=== PATIENT | female | born 1945 | race Caucasian/White ===

== ENCOUNTER → 2017-05-12 | Day surgery (SDC) | payer OTHER ==
[~2017-05-12] VITALS: Ht 162.5 cm; Wt 93.0 kg
[~2017-05-12] MED LIST: ALDACTONE50 M1 PO; ASPIRIN81 M1 PO; AZO MENOPAUSE1 X PO; CALCIUM WITH VI1 TA1 PO; LIPITOR10 MG PO; MILK THISTLE150 MG PO; MULTIVITAMIN1 CTB PO
--- NOTE | ~2017-05-12 | O ---
[place], [place] OPERATIVE NOTE NAME: CONSTANCE LOPEZ UNIT #: [id number] ROOM: DOCTOR: DILMA PAZ MD BIRTHDATE: [birth year] DOS: The patient has presented with chief complaint of nonspecific abdominal pain, history of colonic screening, concerned. PAST SURGICAL HISTORY: D and C. FAMILY HISTORY: Noncontributory. ALLERGIES: To no known medications. SOCIAL HISTORY: Hypercholesterolemia. FAMILY HISTORY: Hypertension. PROCEDURE: Today's procedure as a part of investigation is colonoscopy plus polypectomy. PREMEDICATION: Versed and Diprivan. SCOPE: Olympus folding colonoscope 10L video. REPORT: After putting the patient in the left lateral position and after application of lubricant to the scope, the scope was introduced; thereafter, under direct visualization, advanced through the length of colon without difficulty. Scattered diverticulosis was identified. The base of the cecum explored, appendiceal orifice identified, and ileocecal valve was defined. Scope was gradually withdrawn back to the rectal pouch. Two sessile polypoid lesion with piecemeal polypectomy removed. The patient extubated, tolerated the procedure well. IMPRESSION: Diverticulosis; sessile colonic polyps in rectal pouch, status post piecemeal polypectomy. PLAN AND DISCUSSION: High-fiber fruit diet, activity ad lito. FOLLOWUP: As outpatient. Thank you very much indeed. [place], [place] OPERATIVE NOTE NAME: CONSTANCE LOPEZ UNIT #: [id number] ROOM: DOCTOR: DILMA PAZ MD BIRTHDATE: [birth year] DILMA PAZ MD CM:OPRECORD:OPERATIVE NOTE 2 1 DILMA PZA MD 05/12/17851 interface
[2017-05-12 06:40] VITALS: BP 146/75
[2017-05-12 08:11] VITALS: BP 104/57
[2017-05-12 08:25] VITALS: BP 121/64
[2017-05-12 08:42] VITALS: BP 138/84
== END | disposition home or self-care (01) ==
LOC: SDC 05-06 12:30
DX: K63.5 Polyp of colon (principal); K57.30 Diverticulosis of large intestine without perforation or abscess without bleeding; E78.00 Pure hypercholesterolemia, unspecified; F17.210 Nicotine dependence, cigarettes, uncomplicated; I10 Essential (primary) hypertension; Z98.890 Other specified postprocedural states; Z86.010 Personal history of colon polyps

== ENCOUNTER → 2018-05-09 | Outpatient (CLI) | payer OTHER ==
[2018-05-09 13:12] LABS: BASO # 0.1 10*3/uL (0.0-0.1); BASO % 0.8 % (0.0-1.0); EOS # 0.2 10*3/uL (0.0-0.4); EOS % 2.5 % (1.0-4.0); HEMATOCRIT 42.1 % (37.0-47.0); HEMOGLOBIN 13.5 g/dl (12.0-16.0); LYMPH # 2.3 10*3/uL (1.3-4.4); MEAN CELL VOLUME 105.3 fl (81.0-99.0); MEAN CORPUSCULAR HGB 33.8 pg (27.0-31.0); MEAN CORPUSCULAR HGB CONC 32.1 g/dl (33.0-37.0); MEAN PLATELET VOLUME 10.4 fl (9.6-12.3); MONO # 1.2 10*3/uL (0.1-1.0); MONO % 14.4 % (3.0-9.0); NEUT # 4.3 10*3/uL (2.3-7.9); PLATELET COUNT AUTOMATED 278 10*3/uL (130-400); RED CELL DISTRI WIDTH 12.8 % (0-14.5)
[2018-05-09 13:42] LABS: ALBUMIN 3.9 gm/dl (3.1-4.5); ALKALINE PHOSPHATASE 98 U/L (45-117); BILIRUBIN, DIRECT 0.1 mg/dL (0.0-0.2); BUN 20 mg/dl (7-24); CHLORIDE 99 mmol/L (98-107); CHOLESTEROL 116 mg/dL (<200); CREATININE 0.83 mg/dL (0.55-1.02); HDL CHOLESTEROL 55 mg/dl (40-60); LDL CHOLESTEROL 32 mg/dL (9-159); POTASSIUM 4.2 mmol/L (3.5-5.1); SGOT/AST 24 IU/L (3-35); SGPT/ALT 29 U/L (12-78); SODIUM 137 mmol/L (136-145); TOTAL PROTEIN 8.1 gm/dL (6.4-8.2); TRIGLYCERIDES 144 mg/dl (<150); VLDL CHOLESTEROL 29 mg/dL (6-40)
[2018-05-09 14:03] LABS: VITAMIN D, 25-HYDROXY 30.7 ng/mL (30-100)
== END | disposition home or self-care (01) ==
LOC: LAB 11:45
PROVIDERS: Internal Medicine
DX: E78.2 Mixed hyperlipidemia (principal); M85.80 Other specified disorders of bone density and structure, unspecified site; Z79.1 Long term (current) use of non-steroidal anti-inflammatories (NSAID)

== ENCOUNTER → 2018-10-12 | Day surgery (SDC) | payer OTHER ==
[~2018-10-12] VITALS: Ht 162.5 cm; Wt 97.5 kg
[~2018-10-12] MED LIST changes: +ATORVASTATIN CA40 M1 PO
--- NOTE | ~2018-10-12 | O ---
[place], [place] OPERATIVE NOTE NAME: CONSTANCE LOPEZ UNIT #: [id number] ROOM: DOCTOR: JOSE D BLAKELY MD BIRTHDATE: [birth year] DOS: 10/12/2018 PREOPERATIVE DIAGNOSIS: Cataract, left eye. POSTOPERATIVE DIAGNOSIS: Cataract, left eye. OPERATION: Extracapsular cataract extraction by phacoemulsification with posterior chamber intraocular lens implantation, left eye. ANESTHESIA: Monitored standby. OPERATIVE FINDINGS AND PROCEDURE: 2% Xylocaine topical anesthetic gel was applied to the eye in the preop area. The patient was taken to the operating room and prepped and draped in the standard fashion for sterile intraocular surgery. A time out procedure was performed verifying correct patient, correct site and corrects lens with Landon Blakely M.D. The operating microscope was swung into position and the lid speculum was inserted. Using a Urszula paracentesis blade, a paracentesis was made through clear cornea. Viscoelastic was used to fill the anterior chamber. Using a metal keratome a 2.4 mm self-sealing clear corneal cataract incision was made temporally at the limbus. Using a pre-bent 25 gauge cystotome needle, a standard continuous curvilinear capsulorrhexis was performed. The anterior capsule was removed with forceps. The lens nucleus was hydrodissected and phacoemulsified in the posterior chamber. Cortical material was removed with the irrigation aspiration hand piece and the posterior capsule was then polished with a curet under irrigation. The posterior chamber and capsular bag were filled with viscoelastic. A posterior chamber intraocular lens manufactured by: [employer], Model AU00T0, 19.0 diopters in strength were then inserted into the posterior chamber and within the capsular bag using the lens cartridge and injector system. Viscoelastic was removed using the irrigation aspiration handpiece. The anterior chamber was filled with balanced salt solution through the paracentesis. Both the paracentesis site and cataract incisions were hydrated with BSS and verified to be water-tight and self-sealing. Cefuroxime 1 mg/0.1 mL was injected into the anterior chamber through the paracentesis site. The incision checked to be water-tight using a Weck-Kimberly sponge. The integrity of the cataract wound and ocular tension were checked. Lid speculum and drapes were removed. The patient was transferred from the operating room to the recovery room in satisfactory condition. [place], [place] OPERATIVE NOTE NAME: CONSTANCE LOPEZ UNIT #: [id number] ROOM: DOCTOR: JOSE D BLAKELY MD BIRTHDATE: [birth year] JOSE D BLAKELY MD CM:OPRECORD:OPERATIVE NOTE [id number] JOSE D BLAKELY MD 10/12/18 1343 interface
[2018-10-12 09:10] VITALS: BP 123/56
[2018-10-12 10:44] VITALS: BP 117/68
[2018-10-12 11:00] VITALS: BP 129/68
[2018-10-12 11:11] VITALS: BP 120/58
== END | disposition home or self-care (01) ==
LOC: SDC 08-29 13:15
DX: H25.812 Combined forms of age-related cataract, left eye (principal); I10 Essential (primary) hypertension; E78.00 Pure hypercholesterolemia, unspecified; E78.5 Hyperlipidemia, unspecified; F17.210 Nicotine dependence, cigarettes, uncomplicated; E66.09 Other obesity due to excess calories; Z98.890 Other specified postprocedural states; Z86.010 Personal history of colon polyps; Z79.899 Other long term (current) drug therapy

== ENCOUNTER → 2018-11-02 | Day surgery (SDC) | payer OTHER ==
[~2018-11-02] VITALS: Ht 162.5 cm; Wt 95.3 kg
--- NOTE | ~2018-11-02 | O ---
[place], [place] OPERATIVE NOTE NAME: CONSTANCE LOPEZ UNIT #: [id number] ROOM: DOCTOR: JOSE D BLAKELY MD BIRTHDATE: [birth year] DOS: 11/02/2018 PREOPERATIVE DIAGNOSIS: Cataract, right eye. POSTOPERATIVE DIAGNOSIS: Cataract, right eye. OPERATION: Extracapsular cataract extraction by phacoemulsification with posterior chamber intraocular lens implantation, right eye. ANESTHESIA: Monitored standby. OPERATIVE FINDINGS AND PROCEDURE: 2% Xylocaine topical anesthetic gel was applied to the eye in the preop area. The patient was taken to the operating room and prepped and draped in the standard fashion for sterile intraocular surgery. A time out procedure was performed verifying correct patient, correct site and corrects lens with Landon Blakely M.D. The operating microscope was swung into position and the lid speculum was inserted. Using a Urszula paracentesis blade, a paracentesis was made through clear cornea. Viscoelastic was used to fill the anterior chamber. Using a metal keratome a 2.4 mm self-sealing clear corneal cataract incision was made temporally at the limbus. Using a pre-bent 25 gauge cystotome needle, a standard continuous curvilinear capsulorrhexis was performed. The anterior capsule was removed with forceps. The lens nucleus was hydrodissected and phacoemulsified in the posterior chamber. Cortical material was removed with the irrigation aspiration hand piece and the posterior capsule was then polished with a curet under irrigation. The posterior chamber and capsular bag were filled with viscoelastic. A posterior chamber intraocular lens manufactured by: [employer], model #[id number], 19.0 diopters in strength were then inserted into the posterior chamber and within the capsular bag using the lens cartridge and injector system. Viscoelastic was removed using the irrigation aspiration handpiece. The anterior chamber was filled with balanced salt solution through the paracentesis. Both the paracentesis site and cataract incisions were hydrated with BSS and verified to be water-tight and self-sealing. Cefuroxime 1 mg/0.1 mL was injected into the anterior chamber through the paracentesis site. The incision checked to be water-tight using a Weck-Kimberly sponge. The integrity of the cataract wound and ocular tension were checked. Lid speculum and drapes were removed. The patient was transferred from the operating room to the recovery room in satisfactory condition. [place], [place] OPERATIVE NOTE NAME: CONSTANCE LOPEZ UNIT #: [id number] ROOM: DOCTOR: ZORA PEREZ,JOSE D BIRTHDATE: [birth year] JOSE D BLAKELY MD CM:OPRECORD:OPERATIVE NOTE [id number] 1414 JOSE D BLAKELY MD 11/02/18 1413 interface
[2018-11-02 10:01] VITALS: BP 123/81
[2018-11-02 12:11] VITALS: BP 128/62
[2018-11-02 12:26] VITALS: BP 131/62
== END | disposition home or self-care (01) ==
LOC: SDC 10-27 12:30
DX: H25.811 Combined forms of age-related cataract, right eye (principal); F17.210 Nicotine dependence, cigarettes, uncomplicated; E78.5 Hyperlipidemia, unspecified; I10 Essential (primary) hypertension; E66.01 Morbid (severe) obesity due to excess calories; Z98.41 Cataract extraction status, right eye; Z96.1 Presence of intraocular lens; Z72.89 Other problems related to lifestyle; Z98.890 Other specified postprocedural states; Z79.899 Other long term (current) drug therapy; Z79.82 Long term (current) use of aspirin

== ENCOUNTER → 2018-12-14 | Outpatient (CLI) | payer OTHER ==
[2018-12-14 11:56] LABS: BASO # 0.1 10*3/uL (0.0-0.1); BASO % 0.6 % (0.0-1.0); EOS # 0.4 10*3/uL (0.0-0.4); EOS % 4.1 % (1.0-4.0); HEMATOCRIT 43.2 % (37.0-47.0); HEMOGLOBIN 13.6 g/dl (12.0-16.0); LYMPH # 2.6 10*3/uL (1.3-4.4); LYMPH % 26.4 % (27.0-41.0); MEAN CELL VOLUME 104.9 fl (81.0-99.0); MEAN CORPUSCULAR HGB CONC 31.5 g/dl (33.0-37.0); MEAN PLATELET VOLUME 9.9 fl (9.6-12.3); MONO # 1.2 10*3/uL (0.1-1.0); MONO % 11.9 % (3.0-9.0); NEUT # 5.5 10*3/uL (2.3-7.9); NEUT % 56.5 % (47.0-73.0); PLATELET COUNT AUTOMATED 304 10*3/uL (130-400); RED BLOOD COUNT 4.12 10*6/uL (4.10-5.10); RED CELL DISTRI WIDTH 12.4 % (0-14.5); WHITE BLOOD COUNT 9.8 10*3/uL (4.8-10.8)
[2018-12-14 12:19] LABS: ALBUMIN 3.7 gm/dl (3.1-4.5); ALKALINE PHOSPHATASE 99 U/L (45-117); BILIRUBIN, DIRECT 0.2 mg/dL (0.0-0.2); BUN 19 mg/dl (7-24); CHLORIDE 97 mmol/L (98-107); CHOLESTEROL 135 mg/dL (<200); CREATININE 0.84 mg/dL (0.55-1.02); HDL CHOLESTEROL 60 mg/dl (40-60); LDL CHOLESTEROL 46 mg/dL (9-159); PHOSPHOROUS 4.1 mg/dL (2.5-4.9); POTASSIUM 4.2 mmol/L (3.5-5.1); SGOT/AST 19 IU/L (3-35); SGPT/ALT 30 U/L (12-78); SODIUM 133 mmol/L (136-145); TOTAL PROTEIN 8.1 gm/dL (6.4-8.2); TRIGLYCERIDES 143 mg/dl (<150); VLDL CHOLESTEROL 29 mg/dL (6-40)
== END | disposition home or self-care (01) ==
LOC: LAB 11:25
PROVIDERS: Internal Medicine
DX: E78.2 Mixed hyperlipidemia (principal)

== ENCOUNTER → 2019-09-29 | Day surgery (SDC) | payer OTHER ==
[~2019-09-29] VITALS: Ht 162.5 cm; Wt 95.3 kg
--- NOTE | ~2019-09-29 | O ---
[place], [place] OPERATIVE NOTE NAME: CONSTANCE LOPEZ UNIT #: [id number] ROOM: DOCTOR: DILMA PAZ MD BIRTHDATE: [birth year] DOS: 09/29/2019 GASTROENDOSCOPIC REPORT HISTORY OF PRESENT ILLNESS: A 74-year-old patient who presented with history of colonic polyp, undergoing investigation. PAST MEDICAL HISTORY: Hypertension and hyperlipidemia. FAMILY HISTORY: Noncontributory. SOCIAL HISTORY: Has stopped smoking and social alcohol. PAST SURGICAL HISTORY: Cataract and D and C. ALLERGIES: No known medication. PROCEDURE: Today's procedure part of investigation is colonoscopy plus polypectomy plus photographic series. PREMEDICATION: Propofol. SCOPE: Olympus forward-viewing colonoscope 10L video. REPORT: After putting the patient in left lateral position and application of lubricant to the scope, the scope was introduced. Thereafter, under direct visualization, advanced through the length of colon without difficulty. Diverticulosis was appreciated. Sessile polypoid lesion x 3 in the sigmoid colon with piecemeal polypectomy was removed. Base of the cecum explored, appendiceal orifice identified, ileocecal valve defined. Air was suctioned out. The patient was extubated, tolerated the procedure well. IMPRESSION: 1. Sigmoid polyps x 3 sessile in character, status post piecemeal polypectomy. 2. Diverticulosis. PLAN: High fiber fruit diet. ACTIVITY: Ad lito. FOLLOWUP: As outpatient. Thank you very much indeed for your kind referral. [place], [place] OPERATIVE NOTE NAME: CONSTANCE LOPEZ UNIT #: [id number] ROOM: DOCTOR: DILMA PAZ MD BIRTHDATE: [birth year] DILMA PAZ MD CM:OPRECORD:OPERATIVE NOTE [id number] 1330 DILMA PAZ MD 09/29/19 1329 interface
[2019-09-29 10:47] VITALS: BP 141/76
[2019-09-29 11:42] VITALS: BP 111/60
[2019-09-29 11:57] VITALS: BP 101/59
[2019-09-29 12:12] VITALS: BP 127/66
== END | disposition home or self-care (01) ==
LOC: SDC 09-26 08:45
DX: Z12.11 Encounter for screening for malignant neoplasm of colon (principal); K63.5 Polyp of colon; E78.5 Hyperlipidemia, unspecified; K57.30 Diverticulosis of large intestine without perforation or abscess without bleeding; I10 Essential (primary) hypertension; Z86.010 Personal history of colon polyps; Z79.899 Other long term (current) drug therapy; Z98.890 Other specified postprocedural states

== ENCOUNTER 2020-05-22 05:58 | Emergency (ER) | payer OTHER ==
[~2020-05-22] VITALS: Ht 160 cm; Wt 102.1 kg
[2020-05-22 06:43] LABS: BASO % 0.1 % (0.0-1.0); LYMPH # 1.4 10*3/uL (1.3-4.4); LYMPH % 10.6 % (27.0-41.0); MEAN CELL VOLUME 102.4 fl (81.0-99.0); MEAN CORPUSCULAR HGB 32.6 pg (27.0-31.0); MEAN CORPUSCULAR HGB CONC 31.8 g/dl (33.0-37.0); MEAN PLATELET VOLUME 10.1 fl (9.6-12.3); MONO # 0.8 10*3/uL (0.1-1.0); MONO % 5.6 % (3.0-9.0); NEUT # 11.4 10*3/uL (2.3-7.9); NEUT % 83.3 % (47.0-73.0); PLATELET COUNT AUTOMATED 286 10*3/uL (130-400); RED BLOOD COUNT 3.71 10*6/uL (4.10-5.10); WHITE BLOOD COUNT 13.6 10*3/uL (4.8-10.8)
[2020-05-22 07:06] LABS: ALBUMIN 3.8 gm/dl (3.1-4.5); ALKALINE PHOSPHATASE 98 U/L (45-117); BUN 16 mg/dl (7-24); CHLORIDE 105 mmol/L (98-107); CREATININE 0.93 mg/dL (0.55-1.02); LIPASE 375 U/L (73-393); POTASSIUM 4.1 mmol/L (3.5-5.1); SGOT/AST 26 IU/L (3-35); SGPT/ALT 37 U/L (12-78); SODIUM 138 mmol/L (136-145); TOTAL PROTEIN 8.3 gm/dL (6.4-8.2)
[2020-05-22 07:10] LABS: BILIRUBIN NEGATIVE (NEGATIVE); BLOOD NEGATIVE (NEGATIVE); CLARITY CLEAR (CLEAR); COLOR YELLOW (YELLOW); GLUCOSE NEGATIVE (NEGATIVE); KETONE NEGATIVE (NEGATIVE); LEUKO ESTERASE NEGATIVE (NEGATIVE); NITRITE NEGATIVE (NEGATIVE); UROBILINOGEN 0.2 E.U./dl (0.2-1.0)
[2020-05-22 07:11] LABS: RBC 0-2 rbc/hpf (0-2)
== END 2020-05-22 08:40 | disposition home or self-care (01) ==
LOC: ED 05:58
PROVIDERS: Emergency Medicine
DX: R10.31 Right lower quadrant pain (principal); I10 Essential (primary) hypertension; E78.00 Pure hypercholesterolemia, unspecified; Z79.899 Other long term (current) drug therapy; Z79.82 Long term (current) use of aspirin

== ENCOUNTER → 2020-07-17 | Outpatient (CLI) | payer OTHER | END | disposition home or self-care (01) | LOC: US 12:23 | DX: N85.9 Noninflammatory disorder of uterus, unspecified (principal) ==

== ENCOUNTER → 2020-08-21 | Outpatient (CLI) | payer OTHER ==
[2020-08-21 10:18] LABS: CREATININE 0.98 mg/dL (0.55-1.02)
== END | disposition home or self-care (01) ==
LOC: MRI 09:27 → LAB 09:27 → MRI 10:00
PROVIDERS: Radiology Diagnostic Radiology; ATTEND Obstetrics & Gynecology
DX: D25.9 Leiomyoma of uterus, unspecified (principal); R10.2 Pelvic and perineal pain

== ENCOUNTER → 2020-11-11 | Outpatient (CLI) | payer OTHER | END | disposition home or self-care (01) | LOC: COVID19 11:59 | PROVIDERS: ATTEND Family Medicine | DX: U07.1 COVID-19 (principal) ==